=== PATIENT | male | born 1975 | race Caucasian/White ===

== ENCOUNTER 2019-01-27 01:08 | Emergency (ER) | payer OTHER ==
[~2019-01-27] VITALS: Ht 175.3 cm; Wt 86.2 kg
[~2019-01-27 01:08] MED LIST: [UNRECOGNIZED DRUG - CODE]
[2019-01-27] MEDS ORDERED: VANCOMYCIN 1GM/250ML 250 ML IV ONE (06:00)
[2019-01-27 08:24] LABS: Basophils # (auto) 0.1 uL; Basophils % (auto) 0.5 % (0.0-2.0); Eosinophils # (auto) 0.2 uL; Eosinophils % (auto) 1.3 % (0.0-7.0); Hematocrit 46.2 % (41.0-53.0); Hemoglobin 15.6 g/dL (13.5-17.5); Lymphocytes # (auto) 1.7 uL; Lymphocytes % (auto) 15.5 % (10.0-50.0); Mean Corpuscular Hemoglobin 29.8 pg (28.0-32.0); Mean Corpuscular Hgb Conc. 33.9 g/dL (32.0-36.0); Mean Corpuscular Volume 87.9 fL (80.0-100.0); Monocytes # (auto) 0.8 uL; Monocytes % (auto) 6.8 % (0.0-12.0); Neutrophils # (auto) 8.5 uL; Neutrophils % (auto) 75.9 % (37.0-80.0); Nucleated Red Blood Cells % 0.1 %; Platelet Count (auto) 232 10^3/uL (140-450); Red Blood Cells 5.25 10^6/uL (4.5-5.90); Red Cell Distribution Width 12.7 % (11.8-14.3); White Blood Cell 11.2 10^3/uL (4.4-10.8)
[2019-01-27 08:48] LABS: Albumin 3.7 g/dL (3.4-5.0); Calcium 8.6 mg/dL (8.5-10.1); Potassium 4.2 mmol/L (3.5-5.1)
[2019-01-27 08:51] LABS: BUN/Creatinine Ratio 10.1; Bilirubin, Total 0.7 mg/dL (0.2-1.0); Total Protein 7.9 g/dL (6.4-8.2)
[2019-01-27] MEDS ORDERED: DOXYCYCLINE 100 MG TAB/CAP PO ONE (10:45)
[2019-01-27] MEDS ORDERED: CLINDAMYCIN 900MG IV 50 ML IV ONE (10:45)
[2019-01-27] MEDS ORDERED: ONDANSETRON HCL 4 MG/2 ML VIAL IV ONE (11:00)
[2019-01-27] MEDS ORDERED: MORPHINE SULFATE 4 MG/ML SYR/VIAL IV ONE (11:00)
[2019-01-27] MEDS ORDERED: SODIUM CHLORIDE 0.9% 1,000 ML IV ONE (11:30)
[2019-01-27 12:02] VITALS: BP 114/75
== END 2019-01-27 12:03 | disposition home or self-care (01) ==
LOC: ER 01:08 → EDBD 01:08 → ER 12:03
DX: L02.411 Cutaneous abscess of right axilla (principal); R55 Syncope and collapse; R42 Dizziness and giddiness
CPT/HCPCS: 36415; 70450; 71250; 80053; 85025; 87077; 87186; 87205; 93005; 96365; 96366; 96367; 96375; 99284; J2270; J2405; J3370; J3490; J7030

== ENCOUNTER 2019-01-29 15:21 | Emergency (ER) | payer OTHER ==
[~2019-01-29] VITALS: Ht 177.8 cm; Wt 89.8 kg
[2019-01-29 16:02] VITALS: BP 128/94
== END 2019-01-29 16:06 | disposition home or self-care (01) ==
LOC: ER 15:21
DX: L02.411 Cutaneous abscess of right axilla (principal); I10 Essential (primary) hypertension